=== PATIENT | female | born 1945 | race Caucasian/White ===

== ENCOUNTER → 2019-05-22 | Outpatient (CLI) | payer OTHER | END | disposition home or self-care (01) | LOC: NUCLEAR 07:00 | DX: I20.9 Angina pectoris, unspecified (principal) | CPT/HCPCS: 78452; 93017; A9500 ==

== ENCOUNTER 2019-06-04 08:07 | Outpatient (CLI) | payer OTHER | END 2019-06-04 08:11 | disposition home or self-care (01) | LOC: SONOGRAMA 08:07 | DX: E04.2 Nontoxic multinodular goiter (principal) ==